=== PATIENT | male | born 1970 | race Caucasian/White ===

== ENCOUNTER 2022-04-27 11:51 | Inpatient (IN) | payer OTHER ==
[~2022-04-27] VITALS: Ht 152.4 cm; Wt 79.4 kg
--- NOTE | 2022-04-27 12:53 | NUR ---
PATIENT IS RECIEVED SAYING THAT HIS STOMACH HAS BEEN HURTING FOR MORE THAN SIX MONTHS. PATIENT'S SKIN AND EYES ARE YELLOW AND SHINY.
[2022-04-27] MEDS ORDERED: ZYPREXA2.5 MG (12:54)
[2022-04-27] MEDS ORDERED: DOXEPIN HCL6 MG (12:54)
--- NOTE | 2022-04-27 12:56 | NUR ---
PATIENT IS GIVEN TYLENOL IGM PO FOR FEVER.
--- NOTE | 2022-04-27 14:01 | NUR ---
SE REALIZAN MUESTRAS DE MARLENY POR ORDEN MEDICA, SE [facility] Y SE MANTIENE EN EPSERA DE REALIZAR, [place].
== END 2022-05-14 19:03 | disposition home or self-care (01) | DRG 442 ==
LOC: ER 11:51 → ICU-2 22:11 → MEDI 22:11 → ICU-2 04-28 00:14 → ICU 05-01 06:36 → MEDI 05-09 19:06
PROVIDERS: ADMIT Internal Medicine; ATTEND Internal Medicine
PROC: 05HY33Z Insertion of Infusion Device into Upper Vein, Percutaneous Approach (ICD-10-PCS; principal; 2022-04-29)
PROC: 5A1D70Z Performance of Urinary Filtration, Intermittent, Less than 6 Hours Per Day (ICD-10-PCS; 2022-04-29)
PROC: 30243N1 Transfusion of Nonautologous Red Blood Cells into Central Vein, Percutaneous Approach (ICD-10-PCS; 2022-04-29)
PROC: 5A1D70Z Performance of Urinary Filtration, Intermittent, Less than 6 Hours Per Day (ICD-10-PCS; 2022-05-03)
PROC: 5A1D70Z Performance of Urinary Filtration, Intermittent, Less than 6 Hours Per Day (ICD-10-PCS; 2022-05-06)
PROC: 4A12X4Z Monitoring of Cardiac Electrical Activity, External Approach (ICD-10-PCS; 2022-05-10)
DX: K76.7 Hepatorenal syndrome (principal); A27.9 Leptospirosis, unspecified; N17.9 Acute kidney failure, unspecified; I12.9 Hypertensive chronic kidney disease with stage 1 through stage 4 chronic kidney disease, or unspecified chronic kidney disease; E87.6 Hypokalemia; D69.6 Thrombocytopenia, unspecified; D63.8 Anemia in other chronic diseases classified elsewhere; R09.02 Hypoxemia